=== PATIENT | female | born 1985 | race Caucasian/White ===

== ENCOUNTER 2021-01-22 07:56 | Outpatient (CLI) | payer OTHER ==
[2021-01-22 21:16] LABS: SARS-CoV-2 PCR by NAA Not Detected (NotDetected)
== END 2021-01-22 07:57 | disposition home or self-care (01) ==
LOC: CSHLAB 07:56
PROVIDERS: ATTEND Obstetrics & Gynecology
DX: Z20.822 Contact with and (suspected) exposure to COVID-19 (principal)
CPT/HCPCS: U0003; U0005

== ENCOUNTER 2021-01-25 05:36 | Inpatient (IN) | payer OTHER ==
[2021-01-25] MEDS ORDERED: Bicitra 30 ML UDCUP PO PRN (05:53)
[2021-01-25] MEDS ORDERED: Famotidine/PF 20 mg/2ml Vial SLOW IVP PRN (05:53)
[2021-01-25] MEDS ORDERED: Ondansetron PF 4 MG/2 ML Vial IVP PRN ×3 (05:53→10:31)
[2021-01-25] MEDS ORDERED: Lactated Ringer's 1,000 ML IV SCH (05:53)
[2021-01-25] MEDS ORDERED: hydrALAZINE 20 MG/ML VIAL SLOW IVP PRN ×2 (05:53→10:31)
[2021-01-25] MEDS ORDERED: CEFAZOLIN 2 GM in Premix Bag 1 BAG IVPB SCH (05:53)
[2021-01-25 06:00] VITALS: BMI 29.3
[2021-01-25 06:34] LABS: Hemoglobin 10.1 g/dL (12.0-15.5); Mean Corpuscular HGB CONC 30.3 g/dL (32.0-36.0); Mean Corpuscular Hemoglobin 22.3 pg (27.0-33.0); Mean Corpuscular Volume 73.7 fl (81.6-98.3); Mean Platelet Volume 11.1 fl (7.4-10.4); Platelet Count 211 10x3/uL (150-450); RBC Distribution Width 18.4 % (11.5-14.5); Red Blood Cell (RBC) Count 4.52 10x6/uL (3.90-5.03); White Blood Cell (WBC) Count 7.9 10x3/uL (3.5-10.5)
[2021-01-25] MEDS ORDERED: Phenylephrine 40 MG/NS 250 ML 250 ML ONE (07:00)
[2021-01-25] MEDS ORDERED: ePHEDrine Sulfate 50 MG/10 ML VIAL ONE (07:00)
[2021-01-25] MEDS ORDERED: Morphine PF 10 MG/10 ML VIAL ONE (07:00)
[2021-01-25 07:03] LABS: Syphilis Antibody Nonreactive (Nonreactive); Syphilis Antibody Index 0.04 S/CO (<1.00 Non-Reactive)
[2021-01-25 07:05] LABS: Hep B Surf Ag Non-Reactive S/CO (NonReactive)
[2021-01-25] MEDS ORDERED: Rocuronium Bromide 10 MG/ML (10ML VIAL) ONE (07:15)
[2021-01-25] MEDS ORDERED: Fentanyl 100 MCG/2 ML VIAL ONE (07:16)
[2021-01-25 07:29] LABS: HBSAg Index 0.21 S/CO (0-0.99)
[2021-01-25] MEDS ORDERED: Glycopyrrolate 0.2 MG/ML 5 ML SYRINGE ONE (08:08)
[2021-01-25] MEDS ORDERED: Oxytocin 10 UNITS/ML VIAL ONE ×2 (08:08→08:24)
[2021-01-25] MEDS ORDERED: Ondansetron PF 4 MG/2 ML Vial ONE (08:08)
[2021-01-25] MEDS ORDERED: Dexamethasone 4 mg/ml Vial ONE (08:24)
[2021-01-25] MEDS ORDERED: Ketorolac Tromethamine 30 MG/ML VIAL ONE (08:39)
[2021-01-25] MEDS ORDERED: Ondansetron HCl/PF 4 MG/2 ML Vial IVP PRN (08:54)
[2021-01-25] MEDS ORDERED: Promethazine HCl 25 MG SUPP PR PRN (08:54)
[2021-01-25] MEDS ORDERED: L&D-Morphine 4 MG/ML VIAL SLOW IVP PRN (08:54)
[2021-01-25] MEDS ORDERED: Hydrocerin (Eucerin) Cream 120 gm Jar TOP PRN (08:54)
[2021-01-25] MEDS ORDERED: Naloxone HCl 0.4 mg/ml Vial IV PRN (08:54)
[2021-01-25] MEDS ORDERED: Meperidine HCl/PF 25 MG/ML VIAL SLOW IVP PRN (08:54)
[2021-01-25] MEDS ORDERED: Naloxone HCl 0.4 mg/ml Vial IVP PRN ×2 (08:54)
[2021-01-25] MEDS ORDERED: Ketorolac Tromethamine 30 MG/ML VIAL IVP PRN ×2 (08:54→14:32)
[2021-01-25] MEDS ORDERED: HYDROmorphone 2 MG/ML VIAL SLOW IVP PRN (08:54)
[2021-01-25] MEDS ORDERED: diphenhydrAMINE 50 MG/ML VIAL IVP PRN (08:54)
[2021-01-25] MEDS ORDERED: Promethazine HCl 25 MG/ML VIAL IM PRN (08:54)
[2021-01-25] MEDS ORDERED: NS w/ Oxytocin 30 units 500 ML ONE (08:58)
[2021-01-25] MEDS ORDERED: Communication Order-Pharmacy FS SCH (09:00)
[2021-01-25] MEDS ORDERED: Bisacodyl 10 MG SUPP PR PRN (10:31)
[2021-01-25] MEDS ORDERED: diphenhydrAMINE 25 MG CAP PO PRN (10:31)
[2021-01-25] MEDS ORDERED: Simethicone Chewable 80 MG TAB PO PRN (10:31)
[2021-01-25] MEDS ORDERED: Ibuprofen 800 MG TAB PO SCH (14:00)
[2021-01-25] MEDS: Enoxaparin Sodium 40 MG/0.4 ML SYRINGE SC SCH (20:43)
[2021-01-25] MEDS ORDERED: HYDROcodone/Acetaminophen 5/325 mg Tablet PO PRN (22:00)
[2021-01-26 07:17] LABS: Hemoglobin 8.5 g/dL (12.0-15.5); Mean Corpuscular HGB CONC 29.2 g/dL (32.0-36.0); Mean Corpuscular Hemoglobin 21.9 pg (27.0-33.0); Mean Platelet Volume 11.9 fl (7.4-10.4); Platelet Count 159 10x3/uL (150-450); Red Blood Cell (RBC) Count 3.88 10x6/uL (3.90-5.03); White Blood Cell (WBC) Count 10.2 10x3/uL (3.5-10.5)
[2021-01-26] MEDS: Docusate Calcium (SURFAK) 240 MG CAP PO SCH ×3 (07:45→22:26)
[2021-01-26] MEDS: Ferrous Sulfate 325 MG TAB PO SCH ×3 (07:46→22:26)
[2021-01-26] MEDS: Enoxaparin Sodium 40 MG/0.4 ML SYRINGE SC SCH ×2 (08:44→22:25)
[2021-01-26] MEDS: Prenatal Vitamin 1 TAB PO SCH (10:24)
[2021-01-26] MEDS ORDERED: Boostrix 0.5 ML (Tdap) VIAL IM ONE (10:31)
[2021-01-26] MEDS: HYDROcodone/Acetaminophen 5/325 mg Tablet PO PRN ×2 (15:28→22:26)
[2021-01-26] MEDS ORDERED: Docusate Sodium 100 MG/10 ML UDCUP PO ONE (16:00)
[2021-01-26] MEDS: Docusate Sodium 100 MG/10 ML UDCUP PO SCH (22:26)
[2021-01-26] MEDS: Ibuprofen 800 MG TAB PO SCH (22:27)
[2021-01-27] MEDS: Ibuprofen 800 MG TAB PO SCH ×3 (06:17→21:39)
[2021-01-27] MEDS: HYDROcodone/Acetaminophen 5/325 mg Tablet PO PRN ×3 (06:18→19:08)
[2021-01-27] MEDS: Docusate Calcium (SURFAK) 240 MG CAP PO SCH ×2 (08:18→21:39)
[2021-01-27] MEDS: Ferrous Sulfate 325 MG TAB PO SCH ×2 (08:18→21:39)
[2021-01-27] MEDS: Prenatal Vitamin 1 TAB PO SCH (08:18)
[2021-01-27] MEDS: Docusate Sodium 100 MG/10 ML UDCUP PO SCH ×2 (08:32→21:40)
[2021-01-27] MEDS: Enoxaparin Sodium 40 MG/0.4 ML SYRINGE SC SCH ×2 (08:33→21:05)
[2021-01-28] MEDS: HYDROcodone/Acetaminophen 5/325 mg Tablet PO PRN (03:35)
[2021-01-28 07:43] VITALS: BP 125/76; TEMP 98.2
[2021-01-28] MEDS: Docusate Calcium (SURFAK) 240 MG CAP PO SCH (08:30)
[2021-01-28] MEDS: Ibuprofen 800 MG TAB PO SCH (08:30)
[2021-01-28] MEDS: Enoxaparin Sodium 40 MG/0.4 ML SYRINGE SC SCH (09:09)
[2021-01-28] MEDS: Docusate Sodium 100 MG/10 ML UDCUP PO SCH (09:09)
[2021-01-28] MEDS: Ferrous Sulfate 325 MG TAB PO SCH (09:11)
[2021-01-28] MEDS: Prenatal Vitamin 1 TAB PO SCH (09:24)
== END 2021-01-28 12:36 | disposition home or self-care (01) | DRG 787 ==
LOC: CSHLD 05:36 → CSHPP 11:09
PROVIDERS: ADMIT Obstetrics & Gynecology; ATTEND Obstetrics & Gynecology
PROC: 10D00Z1 Extraction of Products of Conception, Low, Open Approach (ICD-10-PCS; principal; 2021-01-25)
DX: O34.211 Maternal care for low transverse scar from previous cesarean delivery (principal); O99.12 Other diseases of the blood and blood-forming organs and certain disorders involving the immune mechanism complicating childbirth; D68.59 Other primary thrombophilia; D68.51 Activated protein C resistance; O24.429 Gestational diabetes mellitus in childbirth, unspecified control; O69.81X0 Labor and delivery complicated by cord around neck, without compression, not applicable or unspecified; Z3A.39 39 weeks gestation of pregnancy; Z37.0 Single live birth
CPT/HCPCS: 36415; 36416; 51702; 85027; 86780; 86850; 86900; 86901; 87340; J0690; J1100; J1650; J1885; J2274; J2405; J3010